=== PATIENT | female | born 1960 | race Caucasian/White ===

== ENCOUNTER 2020-06-15 01:30 | Outpatient (CLI) | payer BC, SELFPAY ==
[2020-06-15 18:16] LABS: SARS-CoV-2 RNA PCR Negative
== END 2020-06-15 01:31 | disposition home or self-care (01) ==
LOC: ANHCOVIDDT 01:30
PROVIDERS: PCP Family Medicine; Visit Provider Podiatrist Foot & Ankle Surgery
DX: Z01.812 Encounter for preprocedural laboratory examination (principal); Z20.828 Contact with and (suspected) exposure to other viral communicable diseases
CPT/HCPCS: 87635; C9803; U0003

== ENCOUNTER 2020-06-17 01:45 | Day surgery (SDC) | payer BC, SELFPAY ==
[2020-06-11 15:28] VITALS: BMI 37.8
[2020-06-17] VITALS (9 sets, daily range): BP systolic 120–143; BP diastolic 67–90; PULSE 83–96; RESP 12–20; TEMP 36.3–36.7; O2SAT 94–100
--- NOTE | ~2020-06-17 | XR_ITS ---
EXAMINATION: XR surgery orthopedic DATE: 06/17/2020 09:10 INDICATION: Internal fixation left fifth metatarsal fracture. TECHNIQUE: 2 fluoroscopic spot images of the left fore and midfoot were obtained during procedure per formed by Dr. Low. Radiologist was not present for the imaging or procedure. The amount of fluor oscopy time used during this procedure was 0.4 minutes. COMPARISON: Left foot radiographs dated 05/20/2019 FINDINGS: Lateral plate and screw fixation spanning a nondisplaced transverse fracture of the proximal metaphys eal region of the left fifth metatarsal. Alignment is near-anatomic. No other fractures identified. M ild polyarticular osteoarthritis at the first metatarsophalangeal and several tarsal metatarsal joint s. IMPRESSION: 1. Near-anatomic alignment post internal fixation of a likely stress fracture at the proximal metaphy seal region of the left fifth metatarsal. See procedure note for further detail. Reviewed, dictated and finalized at location B. IMPRESSION: 1. Near-anatomic alignment post internal fixation of a likely stress fracture a t the proximal metaphyseal region of the left fifth metatarsal. See procedure n ote for further detail.
--- NOTE | 2020-06-17 06:03 | ECG_ITS ---
Measurements Intervals Odem Rate: 70 P: 68 NJ: 162 QRS: 35 QRSD: 90 T: 64 QT: 377 QTc: 408 Interpretive Statements SINUS RHYTHM NORMAL ECG Electronically Signed On 06-17-2020 8:16:39 CDT by Jourdan Tadeo D.O.
--- NOTE | 2020-06-17 06:38 | P.PNAN_ITS ---
Anes - Initial Pre Proc Eval Procedure: Operation Date: 06/17/20 07:30 Proposed Procedures p Open Reduction Internal Fixation Of Dietz Fracture Left Foot, Percutaneous Calcaneal Bone Marrow Graft Left Foot - Ge Low JR, MD Date/Time: 06/17/20 06:38 Surgeon: Ge Low JR, MD Pre Op Diagnosis: Dietz Fracture Left Foot Patient Data Age: 59 Gender: F Height: 5 ft 4 in Weight: 99.79 kg Allergies Allergy/AdvReac Type Severity Reaction Status Date / Time codeine AdvReac Unknown N/V Verified 06/11/20 15:29 Home Medications Medication Instructions Recorded Confirmed Type metformin 500 mg tablet 500 mg PO BID #60 tablet 03/19/20 06/17/20 Rx sertraline 100 mg tablet 100 mg PO DAILY #90 tablet 03/19/20 06/17/20 Rx Vitamin D3 1 tablet PO DAILY 06/11/20 06/17/20 History alprazolam 0.5 mg PO TID PRN 06/11/20 06/17/20 History aspirin 81 mg PO DAILY 06/11/20 06/17/20 History meloxicam 15 mg PO DAILY 06/11/20 06/17/20 History metoprolol succinate 25 mg PO DAILY 06/11/20 06/17/20 History multivitamin 1 tablet PO DAILY 06/11/20 06/17/20 History ramipril 10 mg PO DAILY 06/11/20 06/17/20 History rosuvastatin 40 mg PO DAILY 06/11/20 06/17/20 History vitamin B complex 1 tablet PO DAILY 06/11/20 06/17/20 History Patient hx anesthesia problems: none Family hx anesthesia problems: none PMFSH Past Medical History Medical History (Updated 06/17/20 @ 06:38 by Ignacio Vazquez MD) Anxiety Benign essential hypertension Coronary artery disease involving venetie ira coronary artery of venetie ira heart Mixed hyperlipidemia Obesity PCOS (polycystic ovarian syndrome) Family History Family History Mother Family history of thyroid disease Hypertension Family history of coronary artery disease Family history of malignant neoplasm of breast in first degree relative Father Family history of emphysema Social History Social History Smoking packs per day: 1 Smoking cigarettes per day: 20.0 Years smoked: 30 Smoking pack-years: 30.00 Smoking status: Former smoker Tobacco type: cigarettes Additional smoking assessment comments: 08/2018 Alcohol intake: current Substance use: current Substance use type: marijuana Last use: DAILY Spiritual care concerns: No Anes - Eval Final PreProcedure Day of Procedure 06/17/20 06:38 Patient weight: obese Heart: regular rate and rhythm Lungs: clear to auscultation Airway: Mallampati scale class II Neurological: alert and oriented Last oral intake: >/= 8 hours ASA classification: III Emergent: no Anesthetic plan: proceed Anesthesia type and monitoring: general LMA and standard monitoring Informed Consent: The patient's anesthetic plan and its attendant risks and benefits were discussed with the patient/family/POA. Questions were solicited and answers provided to the satisfaction of the patient/family/POA.
[2020-06-17] MEDS: LACTATED RINGERS 1,000 ML 30 ML IV CONT ×2 (07:06→09:26)
--- NOTE | 2020-06-17 07:11 | WPDHPUPDATE1 ---
History and Physical Update Update Date/Time: 06/17/20 07:11 History and Physical has been reviewed, including an updated exam of the patient. There are NO changes in the patient's condition. Risks, benefits, and alternatives have been discussed and questions answered. Patient agrees to proceed with procedure.
[2020-06-17] MEDS: ceFAZolin 2 GM/D5W 50 ML 2 GM/50 ML BAG IVPB (07:28)
[2020-06-17] MEDS: LIDOCAINE HCL 2% LOCAL INJ 20 ML VIAL INFILTRATE (08:16)
--- NOTE | 2020-06-17 09:23 | PM.OP ---
Procedure Note - Brief Procedure Note - Brief Date of procedure: 06/17/20 Pre-op diagnosis: Dietz Fracture Left Foot Post-op diagnosis: same Procedure performed: 1. ORIF of dietz fracture left foot 2. Bone marrow graft from left calcaneus Anesthesia: GLMA Surgeon: Ge Low JR, DPM Estimated blood loss (mL): 1 Complications: No immediate complications Condition: stable Disposition: same day
[2020-06-17] MEDS: fentaNYL CITRATE INJ (*CRX) 100 MCG/2 ML VIAL 25 MCG IV PUSH ×3 (09:48→10:35)
--- NOTE | 2020-06-17 17:27 | OP_ITS ---
DATE OF PROCEDURE: 06/17/2020 PREOPERATIVE DIAGNOSIS: Refracturing of Dietz fracture, left foot. POSTOPERATIVE DIAGNOSIS: Refracturing of Dietz fracture, left foot. PROCEDURE: 1. Open reduction and internal fixation of Dietz fracture, left foot. 2. Percutaneous calcaneal bone marrow aspiration for grafting to the left foot. PATHOLOGY: None. ANESTHESIA: General with local. HEMOSTASIS: Pneumatic thigh tourniquet at 300 mmHg. ESTIMATED BLOOD LOSS: Minimal. MATERIALS USED: One [employer] Ortholoc 6-hole plate, 2 Inporia 2.4 mm nonlocking screws from the Ortholoc System, three 2.0 mm Ortholoc locking screws, and then 1 [employer] Ignite Bone Marrow Aspirate System, 3-0 Vicryl, 4-0 Vicryl, 4-0 Monocryl, and 4-0 Prolene. INJECTABLES: 20 mL of Exparel injected preoperatively, 10 mL of 2% lidocaine plain injected intraoperatively. COMPLICATIONS: None. PROCEDURE IN DETAIL: Under mild sedation, the patient was brought into the operating room and placed on the operating table in the lateral decubitus position. A pneumatic thigh tourniquet was placed about the patient's left thigh. Following general anesthesia, local anesthesia was obtained of the left lower extremity utilizing 20 mL of Exparel just proximal and posterior to the neck of the fibula, anesthetizing the common peroneal nerve. The foot was then scrubbed, prepped, and draped in the usual aseptic manner. An Esmarch bandage was then used to examine the patient's left lower extremity and the pneumatic thigh tourniquet was then inflated. Attention was directed to the 5th metatarsal base laterally where an incision was made just distal to the 4th and 5th metatarsocuboid joint extending to the distal metaphyseal-diaphyseal junction of the 5th metatarsal. The incision was continued deep down through the subcutaneous tissues. All bleeders were ligated and cauterized as necessary. At this point, the sural nerve was visualized and reflected dorsally carefully preserving the main nerve along its distal branches. At this point, the periosteal tissue was visualized atop the 5th metatarsal. The periosteal tissue was reflected dorsally and plantarly exposing the entire lateral aspect of the shaft of the 5th metatarsal including the proximal metaphyseal-diaphyseal junction. At this point, the fracture site was visualized. There was no significant bone callus formation to the area noted. Utilizing a Eldorado elevator, the fracture site was inspected. Some areas of bone healing were noted along the lateral cortical margin. At this point, a [employer] Ortholoc plate was placed along the dorsal lateral aspect of the 5th metatarsal. Next utilizing standard principles and techniques, the Ortholoc plate was then held in place utilizing fixation dynamic compression with a locking screw placed distally and a nonlocking screw placed proximal to the fracture site. This allowed compression furthermore, the distal oblong eccentrically drill holed, hole was also used to compress from distal to proximal across the fracture site. Excellent compression was noted. Finally, the remaining screw holes were drilled from dorsal to plantar with 2.0 mm [employer] Ortholoc locking screws. At this point, a small incision was made over the lateral aspect of the calcaneal wall. Next, utilizing the [employer] Ignite Bone Aspirate System, approximately 4 mL of bone marrow aspirate from the calcaneus was drawn. Next, it was mixed with the Ignite [employer] powder until a putty-like substance was obtained. Utilizing a 19-gauge needle, the bone marrow aspirate as well as the Infuse graft was carefully injected through a small drill hole very near to the 5th metatarsal fracture site. 3 mL of the bone aspirate were infiltrated about the canal
== END 2020-06-17 11:55 | disposition home or self-care (01) ==
PROVIDERS: PCP Family Medicine; Visit Provider Podiatrist Foot & Ankle Surgery
PROC: (CPT 28485; principal; 2020-06-17 07:30)
DX: S92.355A Nondisplaced fracture of fifth metatarsal bone, left foot, initial encounter for closed fracture (principal); X50.0XXA Overexertion from strenuous movement or load, initial encounter; I10 Essential (primary) hypertension; I25.10 Atherosclerotic heart disease of native coronary artery without angina pectoris; E78.2 Mixed hyperlipidemia; Z79.84 Long term (current) use of oral hypoglycemic drugs; Z95.5 Presence of coronary angioplasty implant and graft; Z87.891 Personal history of nicotine dependence; F12.90 Cannabis use, unspecified, uncomplicated; E66.9 Obesity, unspecified; Z68.37 Body mass index [BMI] 37.0-37.9, adult
CPT/HCPCS: 28485; 20999; 93005; C9290; J0690; J1100; J1170; J2250; J2370; J2405; J2704; J3010; J7120

== ENCOUNTER → 2022-03-26 08:40 | Outpatient (CLI) | payer BC, SELFPAY ==
--- NOTE | ~2022-03-26 | XR_ITS ---
EXAMINATION: XR chest 2V 03/26/2022 09:23 INDICATION: Chronic cough PROCEDURE: 2 view chest COMPARISON: Comparison to multiple prior studies sequentially, with oldest reviewed study dated 12/12. FINDINGS: The lungs are clear. The cardiomediastinal silhouette is within normal limits. There are no pleural effusions. There is no pneumothorax suspected. There is mild thoracic spondylosis. IMPRESSION: 1: NO ACUTE CARDIOPULMONARY DISEASE. Reviewed, dictated and finalized at location A.
== END ==
PROVIDERS: PCP Family Medicine; Visit Provider Nurse Practitioner Family
DX: R05.3 Chronic cough (principal); Z87.891 Personal history of nicotine dependence
CPT/HCPCS: 71046

== ENCOUNTER 2023-04-27 16:41 | Outpatient (CLI) | payer BC, SELFPAY ==
--- NOTE | ~2023-04-27 | CT_ITS ---
EXAMINATION: CT lung screening DATE: 04/27/2023 16:57 INDICATION: No history of nicotine dependence TECHNIQUE: Computed tomography (CT) of the chest was performed without intravenous contrast. The dose -length product was 279.50 mGy-cm. Automated exposure control and iterative reconstruction technique were employed. COMPARISON: CT dated 04/27/2023 FINDINGS: Heart size is normal. No significant pleural or pericardial effusion. Upper abdomen is unre markable. No endobronchial lesions. No pneumothorax. No focal airspace consolidation. No thoracic lym phadenopathy.. Pulmonary nodules are present measuring 3 mm or less. Largest in the right upper lobe image 29. Mild emphysema. Moderate thoracic spondylosis. IMPRESSION: 1. Lung-RADS category 2: Benign appearance or behavior. Continue annual screening with noncontrast lo w-dose chest CT in 12 months. Reviewed, dictated and finalized at location B. IMPRESSION: 1. Lung-RADS category 2: Benign appearance or behavior. Continue annual screeni ng with noncontrast low-dose chest CT in 12 months.
== END 2023-04-27 16:42 | disposition home or self-care (01) ==
LOC: ANHIMG 16:44
PROVIDERS: PCP Family Medicine; Visit Provider Nurse Practitioner Family
DX: Z12.2 Encounter for screening for malignant neoplasm of respiratory organs (principal); Z87.891 Personal history of nicotine dependence
CPT/HCPCS: 71271

== ENCOUNTER → 2023-09-13 16:17 | Outpatient (CLI) | payer BC, SELFPAY ==
--- NOTE | ~2023-09-13 | XR_ITS ---
EXAM: XR knee LT min 4V DATE: 09/13/2023 17:13 HISTORY: M25.562 - Pain in left knee . COMPARISON: 03/22/2017. FINDINGS: Normal mineralization. No acute fracture or dislocation. Old avulsion fractures at the sup erior patella and fibular head. No lytic or blastic lesion. Moderate tricompartmental osteophytosis. Extensive chondrocalcinosis. No erosion or periosteal change. Soft tissues within normal limits. IMPRESSION: Moderate tricompartmental left knee arthritis with chondrocalcinosis. Reviewed, dictated and finalized at location K. OTING MACHINE OFFBEARER IMPRESSION: Moderate tricompartmental left knee arthritis with chondrocalcinosi s.
== END ==
PROVIDERS: PCP Family Medicine; Visit Provider Family Medicine
DX: M17.12 Unilateral primary osteoarthritis, left knee (principal)
CPT/HCPCS: 73564

== ENCOUNTER → 2023-11-04 10:11 | Outpatient (CLI) | payer BC, SELFPAY ==
--- NOTE | ~2023-11-04 | US_ITS ---
EXAMINATION: US renal BI DATE: 11/04/2023 10:29 INDICATION: N18.31 - Chronic kidney disease, stage 3a TECHNIQUE: Multiple grayscale and Doppler ultrasound images of the kidneys were obtained. COMPARISON: None. FINDINGS: The right kidney measures 11.0 x 4.2 x 4.5 cm. The left kidney measures 10.4 x 4.9 x 4.6 cm. The kidn eys demonstrate normal parenchymal echogenicity. There is mild left hydronephrosis. Irregular focus o f wall thickening in the anterior urinary bladder. IMPRESSION: Mild left hydronephrosis. Irregular anterior urinary bladder wall thickening, consider referral for cystoscopy to evaluate for bladder mass. Reviewed, dictated and finalized at location K. LED HELPER IMPRESSION: Mild left hydronephrosis. Irregular anterior urinary bladder wall thickening, consider referral for cysto scopy to evaluate for bladder mass.
== END ==
PROVIDERS: PCP Internal Medicine Nephrology; Visit Provider Internal Medicine Nephrology
DX: I12.9 Hypertensive chronic kidney disease with stage 1 through stage 4 chronic kidney disease, or unspecified chronic kidney disease (principal); N18.31 Chronic kidney disease, stage 3a; N13.30 Unspecified hydronephrosis
CPT/HCPCS: 76775

== ENCOUNTER 2024-02-20 16:05 | Outpatient (CLI) | payer BC, SELFPAY ==
--- NOTE | ~2024-02-20 | MM_ITS ---
EXAMINATION: MM screening lloyd BI w phillip HISTORY: Screening TECHNIQUE: Craniocaudal and mediolateral oblique 3-D tomosynthesis images were obtained and synthetic 2-D images were generated. CAD analysis was submitted and interpreted. COMPARISON: Comparison to multiple prior studies sequentially, with oldest reviewed study dated 05/29. BREAST PARENCHYMAL COMPOSITION: There are scattered areas of fibroglandular density. FINDINGS: There is no evidence of suspicious mass, calcification, or architectural distortion to sugg est malignancy in either breast. There has been no suspicious interval change. IMPRESSION: 1. No mammographic evidence of malignancy. 2. Recommend routine screening mammography in one year. BI-RADS Category 1: Negative Reviewed, dictated and finalized at location B.
== END 2024-02-20 16:06 ==
LOC: MICIMG 16:05
PROVIDERS: PCP Nurse Practitioner Family; Visit Provider Nurse Practitioner Family
DX: Z12.31 Encounter for screening mammogram for malignant neoplasm of breast (principal)
CPT/HCPCS: 77063; 77067

== ENCOUNTER 2025-02-24 15:55 | Outpatient (CLI) | payer BC, SELFPAY ==
--- NOTE | ~2025-02-24 | MM_ITS ---
EXAMINATION: MM screening lloyd BI w phillip HISTORY: Screening mammogram, family history of breast cancer in her mother. TECHNIQUE: Craniocaudal and mediolateral oblique 3-D tomosynthesis images were obtained and synthetic 2-D images were generated. CAD analysis was submitted and interpreted. COMPARISON: 02/20/2024, 02/01/2018 BREAST PARENCHYMAL COMPOSITION:Not Dense. The breasts are almost entirely fatty FINDINGS: 1.8 cm mass at the right axillary region probably represents a prominent lymph node. This i s not clearly seen on prior exams. No other parenchymal abnormality seen in either breast. No suspici ous microcalcifications. IMPRESSION: 1.8 cm mass the right axillary region, which could reflect prominent lymph node, but this is not pooja rly present on prior exams. Right axillary ultrasound recommended to further assess this lymph node f or morphology. BI-RADS Category 0: Incomplete: Needs additional imaging evaluation. Reviewed, dictated and finalized at location . IMPRESSION: 1.8 cm mass the right axillary region, which could reflect prominent lymph node , but this is not clearly present on prior exams. Right axillary ultrasound rec ommended to further assess this lymph node for morphology. BI-RADS Category 0: Incomplete: Needs additional imaging evaluation.
== END 2025-02-24 15:56 | disposition home or self-care (01) ==
LOC: MICIMG 15:55
PROVIDERS: PCP Nurse Practitioner Family; Visit Provider Nurse Practitioner Family
DX: Z12.31 Encounter for screening mammogram for malignant neoplasm of breast (principal); R92.8 Other abnormal and inconclusive findings on diagnostic imaging of breast
CPT/HCPCS: 77063; 77067

== ENCOUNTER 2025-03-27 13:14 | Outpatient (CLI) | payer BC, SELFPAY ==
--- NOTE | ~2025-03-27 | US_ITS ---
US axilla RT 03/27/2025 13:43 Indication: Enlarged lymph nodes seen on recent screening examination. Procedure: High-resolution ultrasound of the right axilla Comparison: Screening mammogram dated 02/24/2025 Findings: There are normal-appearing lymph nodes in the right axilla with fatty hilum, largest measur ing 2.1 cm, likely reactive. No pathologic appearing lymph nodes are identified. Impression: 1: Mildly enlarged reactive lymph nodes in the right axilla. Recommend follow-up ultrasound in 6 poncho hs to assess for change. BI-RADS CATEGORY 3-PROBABLY BENIGN FINDING RECOMMENDATION: 6 month follow up recommended. Reviewed, dictated and finalized at location A. Impression: 1: Mildly enlarged reactive lymph nodes in the right axilla. Recommend follow-u p ultrasound in 6 months to assess for change. BI-RADS CATEGORY 3-PROBABLY BENIGN FINDING RECOMMENDATION: 6 month follow up recommended.
--- OUTSIDE RECORDS SUMMARY | 2025-03-27 13:22 | XMS_ITS | Continuity of Care Document ---
Author Organization [facility] Address [address] [place] [address] [address] [place] [address] Phone Care Team Providers Care Bilingual Middle School Teacher Name Role Phone Ace Woodson Unavailable Unavailable Advance Directives Directive Yes / No Effective Date File Name No Information Encounters Encounter Description Practice Location Reason(s) For Visit Diagnoses Date Provider Providers Copied on Encounter [facility], [address], [place], [place], [id number], [place] tel:[phone] SEC [facility] No Information Nov-0 3-200 0 Doisy Edward. [address] [facility] , [address], [place], [address], [place]. tel:[phone] Family History Family Member Type Diagnosis Age [...]
--- OUTSIDE RECORDS SUMMARY | 2025-03-27 13:22 | XMS_ITS | Clinical Summary ---
Author Organization [facility] Address [address] [facility] [place] [address] Care Team Providers Care Industrial Maintenance Millwright Name Role Phone Jefry Hill MD Primary Care Provider [phone] Allergies Active Allergy Reactions Criticality Noted Date Comments Codeine Nausea and Vomiting Low 07/25/2018 Medications ALPRAZolam (XANAX) 0.5 mg tablet TK 1 T PO TID 2 07/11/2018 Active meloxicam (MOBIC) 15 mg tablet TK 1 T PO QD 0 06/26/2018 Active metFORMIN (GLUCOPHAGE) 500 mg tablet TK 1 T PO BID 1 06/29/2018 Active metoprolol succinate (TOPROL XL) 25 mg Extended Release 24 hour tablet 2 06/26/2018 Active ramipril (ALTACE) 10 mg capsule 1 06/26/2018 Active sertraline (ZOLOFT) 100 mg tablet TAKE 1 TABLET BY MOUTH EVERY DAY 2 06/26/2018 Active simvastatin (ZOCOR) 40 mg tablet 1 06/26/2018 Active multivitamin (DAILY-BLAS) tablet Take 1 Tablet by mouth daily. Active cholecalciferol, vitamin D3, 1,000 unit Take by mouth. Active buPROPion HCl (WELLBUTRIN XL) 150 mg Extended Release 24 hour tablet Take 1 Tablet (150 mg) by mouth daily plc engineer. 30 Tablet 3 07/25/2018 Active aspirin (ECOTRIN EC) 81 mg Tablet, Delayed Release (E.C.) Take 81 mg by mouth daily. 01/11/2014 Active Active Problems Problem Noted Date Diagnosed Date Leukocytosis (leucocytosis) 07/25/2018 Family History Medical History Relation Name Comments Cancer Brother 1 Lung Cancer Brother 1 Cancer Brother 2 Lung Cancer Brother 2 Cancer Father Heart Disease Father Lung Cancer Father Breast Cancer Mother Heart Disease Mother Relation Name Status Comments Brother 1 Brother 2 Father Mother Social History Tobacco Use Types Packs/Day Years Used Date Smoking Tobacco: Every Day Cigarettes Smokeless Tobacco: Never Alcohol Use Standard Drinks/Week Comments Yes 0 (1 standard drink = 0.6 oz pur e alcohol) Comments No Sex and Gender Information Value Date Recorded Sex Assigned at Not on file Legal Sex 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 Gender Identity Not on file Sexual Orientation Not on file Last Filed Vital Signs Vital Sign Reading Time Taken Comments Blood Pressure 143/81 02/11/2019 3:14 PM CDT Pulse 73 02/11/2019 3:14 PM CDT Temperature 36.6 C (97.8 F) 02/11/2019 3:14 PM CDT Respiratory Rate - - Oxygen Saturation 95% 02/11/2019 3:14 PM CDT Inhaled Oxygen Concentration - - Weight 101.7 kg (224 lb 4.8 oz) 02/11/2019 3:14 PM CDT Height 162.6 cm (5' 4) 02/11/2019 3:14 PM CDT Body Mass Index 38.5 02/11/2019 3:14 PM CDT Plan of Treatment Health Maintenance Due Date Last Done Comments DTAP/TDAP/TD VACCINES (1 - Tdap) 1981 HPV/Cotest (21-29) 12/10/1983 CERVICAL CANCER SCREENING 1992 HPV/Cotest (30-65) 1992 PAP SMEAR 1992 BREAST CANCER SCREENING 2002 COLORECTAL SCREENING 12/10/2007 Colorectal Cancer Screening 12/10/2007 FIT-DNA Q 3 years 12/10/2007 FIT/FOBT Q 1 year 12/10/2007 Flex Sig/CT Colonography Q 5 years 12/10/2007 ZOSTER VACCINE (1 of 2) 2012 INFLUENZA VACCINE (#1) 2025 RSV VACCINE (60+ or ) (1 - 1-dose 75+ series) 2037 [place] [address] [place] [address] [place] [address] Care Teams Industrial Maintenance Millwright Relationship Specialty Start Date End Date Jefry Hill MD [address] [place] [id number] PCP - General Family Practice 07/11/18
--- OUTSIDE RECORDS SUMMARY | 2025-03-27 13:22 | XMS_ITS | Clinical Summary ---
Author Organization [facility] [place] [place] [address] Address [address] [place] [address] Care Team Providers Care Remote Sensing Technologist Name Role Phone Jefry Hill MD Primary Care Provider + [phone] Allergies Active Allergy Reactions Criticality Noted Date Comments Codeine Nausea And Vomiting Low 10/25/2016 Medications acetaminophen (TYLENOL) 325 mg tablet take 1 - 2 Tablet by oral route every 6 hours as needed 0 0 01/07/20 14 Active aspirin 81 mg tablet take 1 tablet by oral route every day 0 0 01/12/20 14 Active ALPRAZolam (XANAX) 0.5 mg tablet Take 1 tablet (0.5 mg total) by mouth daily as needed 1 05/04/20 17 Active metFORMIN (GLUCOPHAGE) 500 mg tablet Take 500 mg by mouth 2 (two) times a day with meals. 3 05/04/20 17 Active sertraline (ZOLOFT) 100 mg tablet Take 1 tablet (100 mg total) by mouth daily 2 04/19/20 17 Active nitroglycerin (NITROSTAT) 0.[address] 1 tablet (0.4 mg total) under the tongue every 5 (five) minutes as needed for chest pain. 25 tablet 3 05/22/20 17 Active calcium carbonate-vitamin D3 1,250mg (500mg elemental) - 200 units per tablet Take 1 tablet by mouth 2 (two) times a day with meals Active vitamin B complex capsule Take 1 capsule by mouth daily Active ramipriL (ALTACE) 5 mg capsuleIndications: Essential hypertension,Barba ry arteriosclerosis in [place] artery Take 1 capsule (5 mg total) by mouth daily 90 capsule 2 11/01/19 25 Active rosuvastatin (CRESTOR) 40 mg tabletIndications:C oronary arteriosclerosis in [place] artery,Multiple-typ e hyperlipidemia TAKE 1 TABLET(40 MG) BY MOUTH DAILY 90 tablet 1 03/12/20 25 Active rosuvastatin (CRESTOR) 40 mg tabletIndications:C oronary arteriosclerosis in [place] artery,Multiple-typ e hyperlipidemia TAKE 1 TABLET(40 MG) BY MOUTH DAILY 90 tablet 12/25/19 25 025 Discontinued Active Problems Problem Noted Date Diagnosed Date Severe obesity 11/01/2024 Morbid (severe) obesity due to excess calories 0 01/23/2023 CKD (chronic kidney disease) stage 3, GFR 30-59 ml/min 01/23/2023 Hypotension due to drugs 01/23/2023 Former smoker 08/20/2018 Obesity (BMI 30-39.9) 08/20/2018 PCOS (polycystic ovarian syndrome) 05/22/2017 Multiple-type hyperlipidemia 12/21/2015 Overview (2016): Mixed hyperlipidemia Class 3 severe obesity with serious comorbidity in adult ([facility]) 10/27/2014 Overview (2016): Obesity Essential hypertension 04/21/2014 Overview (2016): HTN (hypertension) Coronary arteriosclerosis in [place] artery 04/21 Overview (2016): CAD in [place] artery Resolved Problems Problem Noted Date Diagnosed Date Resolved Date Hyperlipidemia 04/21/2014 08/08/2017 Overview (2016): Hyperlipidemia Current smoker 04/21/2014 01/06/2020 Overview (2016): Smoker Surgical History Surgery Date Site/Laterality Comments CHOLECYSTECTOMY Cholecystectomy Medical History Medical History Date Comments Hypertension Hypertension Hypercholesterolemia High choles terol Coronary artery disease 2013 ACS, lad stent PCOS (polycystic ovarian syndrome) Psoriasis Family History Medical History Relation Name Comments Lung cancer Brother 2 Cancer, lung; C ause of : Cancer, lung Lung disease Father Lung disease; C ause of : Lung disease Heart failure Mother Congestive Hea rt Failure; Cause of : Congestive Heart Failure Relation Name Status Comments Brother 1 Brother 2 Father (Age 70) Mother (Age 84) Social History Tobacco Use Types Packs/Day Years Used Date Smoking Tobacco: Former Smokeless Tobacco: Never Tobacco Cessation:Counseling Given: Not Answered Comments:Smoking History Packs/day: 0.5 Packs Alcohol Use Standard Drinks/Week Comments Yes 0 (1 standard drink = 0.6 oz pur e alcohol) Comments Unknown Sex and Gender Information Value Date Recorded Sex Assigned at Not on file Legal Sex Female 4:28 AM GREASE MAKER Gender Identity Not on file Sexual Orientation Not on file Obstetrics History Last Filed Vital Signs Vital Sign Reading Time Taken Comments Blood Pressure 94/60 11/01/2024 3:16 PM GREASE MAKER Pulse 79 11/01/2024 3:16 PM GREASE MAKER Temperature - - Respiratory Rate - - Oxygen Saturation 94% 11/01/2024 3:16 PM GREASE MAKER Inhaled Oxygen Concentration - - Weight 103.5 kg (228 lb 3.2 oz) 11/01/2024 3:16 PM GREASE MAKER Height 162.6 cm (5' 4) 11/01/2024 3:16 PM GREASE MAKER Body Mass Index 39.17 11/01/2024 3:16 PM GREASE MAKER Plan of Treatment Health Maintenance Due Date Last Done Comments Breast Cancer Screening-Mammogram 1962 Cervical Cancer Screening 1962 Colon Cancer Screening-Colonoscopy 1962 Depression Screening 1962 Hepatitis C Screening 1962 DTaP/Tdap/Td Vaccine (1 - Tdap) 1973 Hepatitis B Screening 1980 Regular Well Visit/Exam 18-64 1980 Zoster Vaccine (1 of 2) 2012 Covid-19 Vaccine (3 2023-2 5 season) 2024 11/27/2020, 11/06/2020 Influenza Vaccine (#1) 2025 Pneumococcal vaccine <65 Aged Out No longer eligible based on patient's age to complete this topic [place] [address] Care Teams Remote Sensing Technologist Relationship Specialty Start Date End Date Jefry Hill MD PCP - General 12/02/16
--- OUTSIDE RECORDS SUMMARY | 2025-03-27 13:22 | XMS_ITS | Referral Summary ---
Author Organization [facility] [place] [address] Address [address] [place] [address] Care Team Providers Care Sales Representative Graphic Art Name Role Phone Jefry Hill MD Primary Care Provider + [phone] Allergies Active Allergy Reactions Criticality Noted Date [...] mg capsuleIndications: Essential hypertension,Barba ry arteriosclerosis in [place] artery Take 1 capsule (5 mg total) by mouth daily 90 capsule 2 11/01/19 25 Active rosuvastatin (CRESTOR) 40 mg tabletIndications:C oronary arteriosclerosis in [place] artery,Multiple-typ e hyperlipidemia TAKE 1 TABLET(40 MG) BY MOUTH DAILY 90 tablet 1 03/12/20 25 Active rosuvastatin (CRESTOR) 40 mg tabletIndications:C oronary arteriosclerosis in [place] artery,Multiple-typ e hyperlipidemia TAKE 1 TABLET(40 MG) [...] severe obesity with serious comorbidity in adult ([facility]) 10/27/2014 Overview (2016): Obesity Essential hypertension 04/21/2014 Overview (2016): HTN (hypertension) Coronary arteriosclerosis in [place] artery 04/21 Overview (2016): CAD in [place] artery Resolved Problems Problem Noted Date Diagnosed Date Resolved Date Hyperlipidemia 04/21/2014 08/08/2017 Overview (2016): Hyperlipidemia Current smoker 04/21/2014 01/06/2020 Overview (2016): Smoker Social History Tobacco Use Types Packs/Day Years Used Date Smoking Tobacco: Former Smokeless Tobacco: Never Tobacco Cessation:Counseling Given: Not Answered Comments:Smoking History Packs/day: 0.5 Packs Alcohol Use Standard Drinks/Week Comments Yes 0 (1 standard drink = 0.6 oz pur e alcohol) Comments Unknown Sex and Gender Information Value Date Recorded Sex Assigned at Not on file Legal Sex Female 4:28 AM PHLEBOTOMY TECHNOLOGIST Gender Identity Not on file Sexual Orientation Not on file Last Filed Vital Signs Vital Sign Reading Time Taken Comments Blood Pressure 94/60 11/01/2024 3:16 PM PHLEBOTOMY TECHNOLOGIST Pulse 79 11/01/2024 3:16 PM PHLEBOTOMY TECHNOLOGIST Temperature - - Respiratory Rate - - Oxygen Saturation 94% 11/01/2024 3:16 PM PHLEBOTOMY TECHNOLOGIST Inhaled Oxygen Concentration - - Weight 103.5 kg (228 lb 3.2 oz) 11/01/2024 3:16 PM PHLEBOTOMY TECHNOLOGIST Height 162.6 cm (5' 4) 11/01/2024 3:16 PM PHLEBOTOMY TECHNOLOGIST Body Mass Index 39.17 11/01/2024 3:16 PM PHLEBOTOMY TECHNOLOGIST Plan of Treatment Not on file [place] [address] Care Teams Sales Representative Graphic Art Relationship Specialty Start Date End Date Jefry Hill MD PCP - General 12/02/16
== END 2025-03-27 13:15 | disposition home or self-care (01) ==
LOC: ANHIMG 13:20
PROVIDERS: PCP Nurse Practitioner Family; Visit Provider Nurse Practitioner Family
DX: R92.8 Other abnormal and inconclusive findings on diagnostic imaging of breast (principal)
CPT/HCPCS: 76882

== ENCOUNTER 2025-06-21 08:18 | Outpatient (CLI) | payer BC, SELFPAY ==
--- OUTSIDE RECORDS SUMMARY | 2000-07-07 10:15 | XMS_ITS | Continuity of Care Document ---
Author Organization [facility] Address [address] [place] [address] [address] [place] [address] Phone Care Team Providers Care Fire Chief Deputy Name Role Phone Ace Woodson Unavailable Unavailable Advance Directives Directive Yes / No Effective Date File Name No Information Encounters Encounter Description Practice Location Reason(s) For Visit Diagnoses Date Provider Providers Copied on Encounter [facility], [address], [place], [place], [id number], [place] tel:[phone] SEC [facility] No Information Nov-0 3-200 0 Doisy Edward. [address] [facility] , [address], [place], [address], [place]. tel:[phone] Family History Family Member Type Diagnosis Age At Onset No Information Payers Payer name Insurance type Covered libertarian ID Authoriza tion(s) No Information Social History [...]
--- NOTE | ~2025-06-21 | XR_ITS ---
EXAMINATION: XR chest 2V, 06/21/2025 8:35 CDT HISTORY: R05.3 - Chronic cough COMPARISON: No comparisons available. Technique: 2 views obtained. Findings: The lungs are clear, no effusion. No pneumothorax. Heart is normal size. Mediastinal and hilar contours are within normal limits. Bony thorax no acute abnormality. Impression: No acute cardiopulmonary abnormality. Reviewed, dictated and finalized at location P. Impression: No acute cardiopulmonary abnormality.
--- OUTSIDE RECORDS SUMMARY | 2025-06-21 08:22 | XMS_ITS | Clinical Summary ---
Author Organization [facility] [address] Address [address] [place] [address] Care Team Providers Care Manager Business Operations Name Role Phone Jefry Hill MD Primary Care Provider + [phone] Allergies Active Allergy Reactions Criticality Noted Date Comments Codeine Nausea And Vomiting Low 10/25/2016 Medications acetaminophen (TYLENOL) 325 mg tablet take 1 - 2 Tablet by oral route every 6 hours as needed 0 0 4 Active aspirin 81 mg tablet take 1 tablet by oral route every day 0 0 4 Active ALPRAZolam (XANAX) 0.5 mg tablet Take 1 tablet (0.5 mg total) by mouth daily as needed 1 7 Active metFORMIN (GLUCOPHAGE) 500 mg tablet Take 500 mg by mouth 2 (two) times a day with meals. 3 7 Active sertraline (ZOLOFT) 100 mg tablet Take 1 tablet (100 mg total) by mouth daily 2 7 Active nitroglycerin (NITROSTAT) 0.[address] 1 tablet (0.4 mg total) under the tongue every 5 (five) minutes as needed for chest pain. 25 tablet 3 7 Active calcium carbonate-vitamin D3 1,250mg (500mg elemental) - 200 units per tablet Take 1 tablet by mouth 2 (two) times a day with meals Active vitamin B complex capsule Take 1 capsule by mouth daily Active ramipriL (ALTACE) 5 mg capsuleIndications:E ssential hypertension,Coronar y arteriosclerosis in [place] artery Take 1 capsule (5 mg total) by mouth daily 90 capsule 2 5 Active rosuvastatin (CRESTOR) 40 mg tabletIndications:Co ronary arteriosclerosis in [place] artery,Multiple-type hyperlipidemia TAKE 1 TABLET(40 MG) BY MOUTH DAILY 90 tablet 1 5 Active Active Problems Problem Noted Date Diagnosed Date Severe obesity 11/01/2024 Morbid (severe) obesity due to excess calories 0 01/23/2023 CKD (chronic kidney disease) stage 3, GFR 30-59 ml/min 01/23/2023 Hypotension due to drugs 01/23/2023 Former smoker 08/20/2018 Obesity (BMI 30-39.9) 08/20/2018 PCOS (polycystic ovarian syndrome) 05/22/2017 Multiple-type hyperlipidemia 12/21/2015 Overview (2016): Mixed hyperlipidemia Class 3 severe obesity with serious comorbidity in adult ([facility]) 10/27/2014 Overview (2016): Obesity Essential hypertension 04/21/2014 Overview (2016): HTN (hypertension) Coronary arteriosclerosis in [place] artery 04/21 Overview (2016): CAD in [place] artery Resolved Problems Problem Noted Date Diagnosed [...] on file Legal Sex Female 4:28 AM FACILITIES ENGINEER Gender Identity Not on file Sexual Orientation Not on file Obstetrics History Last Filed Vital Signs Vital Sign Reading Time Taken Comments Blood Pressure 94/60 11/01/2024 3:16 PM FACILITIES ENGINEER Pulse 79 11/01/2024 3:16 PM FACILITIES ENGINEER Temperature - - Respiratory Rate - - Oxygen Saturation 94% 11/01/2024 3:16 PM FACILITIES ENGINEER Inhaled Oxygen Concentration - - Weight 103.5 kg (228 lb 3.2 oz) 11/01/2024 3:16 PM FACILITIES ENGINEER Height 162.6 cm (5' 4) 11/01/2024 3:16 PM FACILITIES ENGINEER Body Mass Index 39.17 11/01/2024 3:16 PM FACILITIES ENGINEER Plan of Treatment Health Maintenance Due Date Last Done Comments Breast Cancer Screening-Mammogram 1962 Cervical Cancer Screening 1962 Colon Cancer Screening-Colonoscopy 1962 Depression Screening 1962 Hepatitis C Screening 1962 DTaP/Tdap/Td Vaccine (1 - Tdap) 1973 Hepatitis B Screening 1980 Regular Well Visit/Exam 18-64 1980 Zoster Vaccine (1 of 2) 2012 Covid-19 Vaccine (3 - 2024-2 6 season) 2025 11/27/2020, 11/06/2020 Influenza Vaccine (#1) 2025 Pneumococcal vaccine <65 Aged Out No longer eligible based on patient's age to complete this topic [place] Care Teams Manager Business Operations Relationship Specialty Start Date End Date Jefry Hill MD PCP - General 12/02/16
--- OUTSIDE RECORDS SUMMARY | 2025-06-21 08:22 | XMS_ITS | Clinical Summary ---
Author Organization [facility] Address [address] [place] [address] Care Team Providers Care Clamp Operator Name Role Phone Jefry Hill MD Primary Care Provider [phone] Allergies Active Allergy Reactions Criticality Noted Date [...] 1 Tablet (150 mg) by mouth daily rod tape operator. 30 Tablet 3 07/25/2018 Active aspirin (ECOTRIN [...] on file Legal Sex Female 1:56 PM AUTOMOTIVE HARDWARE ENGINEER Gender Identity Not on file Sexual [...] (1 - 1-dose 75+ series) 20[address] [place] [address] [place] [address] Care Teams Clamp Operator Relationship Specialty Start Date End Date Jefry Hill MD [address] [place] [id number] PCP - General Family Practice 07/11/18
== END 2025-06-21 08:19 | disposition home or self-care (01) ==
LOC: ANHIMG 08:21
PROVIDERS: PCP Family Medicine; Visit Provider Nurse Practitioner Family
DX: R05.3 Chronic cough (principal)
CPT/HCPCS: 71046

== ENCOUNTER 2025-07-16 15:49 | Outpatient (CLI) | payer BC, SELFPAY ==
--- OUTSIDE RECORDS SUMMARY | 2000-07-07 09:15 | XMS_ITS | Continuity of Care Document ---
Author Organization [facility] Address [address] [place] [address] [address] [place] [address] Phone Care Team Providers Care Atomizer Assembler Name Role Phone Ace Woodson Unavailable Unavailable Advance Directives Directive Yes / No Effective Date File Name No Information Encounters Encounter Description Practice Location Reason(s) For Visit Diagnoses Date Provider Providers Copied on Encounter [facility], [address], [place], [place], [id number], [place] tel:[phone] SEC [facility] No Information Nov-0 3-200 0 Doisy Edward. [address] [facility] , [address], [place], [address], [place]. tel:[phone] Family History Family Member Type Diagnosis Age At Onset No Information Payers Payer name Insurance type Covered democrat ID Authoriza tion(s) No Information Social History Type Description Quantity Date Captured Comments Sex Female Smoking Status No Information Chief Complaint And Reason For Visit No Information Reason For Referral Reason For Referral No Information History Of Present Illness Encounter Date Complaint History Of Prese nt Illness No Information Functional Status Date Functional Assessmen t No Information Instructions Date Instruction Additional Infor mation No Information Assessments Type Assessment Date No Information Patient Care Teams Name Effective Dates (start - stop) Status Members No Information
--- NOTE | ~2025-07-16 | CT_ITS ---
CT diagnostic chest w con HISTORY:R05.3 - Chronic cough COMPARISON: None. TECHNIQUE: Axial images of the chest were obtained without infusion of intravenous contrast. Dose optimization technique was utilized. FINDINGS: The examination demonstrates no pulmonary nodules, infiltrates and/or effusions. Cardiac size and mediastinal configuration are normal in appearance. No hilar or mediastinal lymphadenopathy is seen. The thoracic aorta is normal in caliber. Osseous structures are intact. IMPRESSION: No acute cardiopulmonary process. All CT scans at this facility are performed using low dose modulation techniques as appropriate to perform exam including the following: automated exposure control; use of iterative reconstruction technique; adjustment of the mA and/or kV according to patient size (this includes techniques or standardized protocols for targeted exams where dose is matched to indication/reason for exam). Reviewed, dictated and finalized at location S. RT CLERK IMPRESSION: No acute cardiopulmonary process. All CT scans at this facility are performed using low dose modulation techniqu es as appropriate to perform exam including the following: automated exposure c ontrol; use of iterative reconstruction technique; adjustment of the mA and/or kV according to patient size (this includes techniques or standardized protocol s for targeted exams where dose is matched to indication/reason for exam).
--- OUTSIDE RECORDS SUMMARY | 2025-07-16 16:20 | XMS_ITS | Clinical Summary ---
Author Organization [facility] [place] [address] Address [address] [place] [address] Care Team Providers Care Awning Installer Name Role Phone Jefry Hill MD Primary Care Provider + [phone] Allergies Active Allergy Reactions Criticality Noted Date [...] mg capsuleIndications:E ssential hypertension,Coronar y arteriosclerosis in [place] artery Take 1 capsule (5 mg total) by mouth daily 90 capsule 2 5 Active rosuvastatin (CRESTOR) 40 mg tabletIndications:Co ronary arteriosclerosis in [place] artery,Multiple-type hyperlipidemia TAKE 1 TABLET(40 MG) BY [...] severe obesity with serious comorbidity in adult ([facility]) 10/27/2014 Overview (2016): Obesity Essential hypertension 04/21/2014 Overview (2016): HTN (hypertension) Coronary arteriosclerosis in [place] artery 04/21 Overview (2016): CAD in [place] artery Resolved Problems Problem Noted Date Diagnosed [...] on file Legal Sex Female 4:28 AM LIFT TEAM TECHNICIAN Gender Identity Not on file Sexual Orientation Not on file Last Filed Vital Signs Vital Sign Reading Time Taken Comments Blood Pressure 94/60 11/01/2024 3:16 PM LIFT TEAM TECHNICIAN Pulse 79 11/01/2024 3:16 PM LIFT TEAM TECHNICIAN Temperature - - Respiratory Rate - - Oxygen Saturation 94% 11/01/2024 3:16 PM LIFT TEAM TECHNICIAN Inhaled Oxygen Concentration - - Weight 103.5 kg (228 lb 3.2 oz) 11/01/2024 3:16 PM LIFT TEAM TECHNICIAN Height 162.6 cm (5' 4) 11/01/2024 3:16 PM LIFT TEAM TECHNICIAN Body Mass Index 39.17 11/01/2024 3:16 PM LIFT TEAM TECHNICIAN Plan of Treatment Health Maintenance Due Date [...] [place] Care Teams Awning Installer Relationship Specialty Start Date End Date Jefry Hill MD PCP - General 12/02/16
--- OUTSIDE RECORDS SUMMARY | 2025-07-16 16:20 | XMS_ITS | Clinical Summary ---
Author Organization [facility] Address [address] [place] [address] Care Team Providers Care Admissions Nurse Name Role Phone Jefry Hill MD Primary Care Provider [phone] Allergies Active Allergy Reactions Criticality Noted Date [...] 1 Tablet (150 mg) by mouth daily counseling program leader. 30 Tablet 3 07/25/2018 Active aspirin (ECOTRIN [...] on file Legal Sex Female 1:56 PM BARN OPERATOR Gender Identity Not on file Sexual Orientation [...] (1 - 1-dose 75+ series) [address] [place] [address] [place] [address] [place] [address] Care Teams Admissions Nurse Relationship Specialty Start Date End Date Jefry Hill MD [address] [place] [id number] PCP - General Family Practice 07/11/18
[2025-07-16 16:35] LABS: Estimated Glomerular Filt Rate 38
== END 2025-07-16 15:50 | disposition home or self-care (01) ==
PROVIDERS: PCP Nurse Practitioner Family; Visit Provider Nurse Practitioner Family
DX: R05.3 Chronic cough (principal); Z87.891 Personal history of nicotine dependence
CPT/HCPCS: 71260; Q9967